=== PATIENT | male | born 1945 | race Caucasian/White ===

== ENCOUNTER 2024-09-14 05:41 | Observation (INO) ==
[~2024-09-14 05:41] MED LIST: Lidocaine 1% w EPI 1:100,000 MDV 50 ML VIAL ONE; NS 0.45% 1000 ml BAG 1,000 ML IV SCH; Naloxone 0.4 mg VIAL 0.4 mg/ml 1 ml VIAL IV PRN; Ondansetron 4 mg VIAL 2 MG/ML 2 ml VIAL IV PRN; Vancomycin 1,000 MG VIAL ONE; fentaNYL 100 mcg/2 ml 50 MCG/ML VIAL IV PRN
[2024-09-14] MEDS ORDERED: ceFAZolin 2 GM PREMIX 2 GM/50 ML BAG ONE (06:05)
[2024-09-14] MEDS ORDERED: Tranexamic Acid 1 GM/100ML BAG 2,000 MG/200 ML BAG IV ONE (06:05)
[2024-09-14] MEDS ORDERED: Propofol 10 mg/ml 100 ML BTL 0 MG/0 ML BTL ONE (06:41)
[2024-09-14] MEDS ORDERED: Lidocaine 2% PF 5 ML VIAL ONE (06:42)
[2024-09-14] MEDS ORDERED: Ondansetron 4 mg VIAL 2 MG/ML 2 ml VIAL ONE ×2 (06:42→13:24)
[2024-09-14] MEDS ORDERED: Dexamethasone IV 4 MG/ML VIAL 1 ml VIAL ONE ×2 (06:42→13:24)
[2024-09-14] MEDS ORDERED: fentaNYL 100 mcg/2 ml 50 MCG/ML VIAL ONE ×4 (06:43→13:45)
[2024-09-14] MEDS ORDERED: Midazolam 2 mg/2 ml VIAL 1 mg/ml 2 ml VIAL (2 mg) ONE (06:43)
[2024-09-14] MEDS ORDERED: Rocuronium 50 mg VIAL 10 mg/ml 5 ml VIAL (50 mg) ONE (06:43)
[2024-09-14] MEDS ORDERED: Phenylephrine IV 10 MG/ML 1 ml VIAL ONE (06:43)
[2024-09-14 06:44] LABS: Rapid COVID-19 Molecular Undetected (Undetected)
[2024-09-14] MEDS ORDERED: ROPIVACAINE 5 MG/ML 30 ML BTL (0.5%) ONE (06:47)
[2024-09-14] MEDS ORDERED: Midazolam 5 mg/5 ml VIAL 1 mg/ml 5 ml VIAL (5 mg) ONE ×2 (06:47→10:13)
[2024-09-14] MEDS ORDERED: HYDROmorphone 0.5 MG/0.5 ML SYRINGE ONE (12:40)
[2024-09-14] MEDS ORDERED: KETAMINE HCL 10 MG/ML 20 ml VIAL (200 MG) ONE (13:19)
[2024-09-14] MEDS ORDERED: Sevoflurane BOTTLE ONE (13:53)
[2024-09-14] MEDS ORDERED: Propofol 10 MG/ML 20 ML BTL ONE (14:12)
[2024-09-14] MEDS ORDERED: Acetaminophen IV 1 GM/100ML 1,000 MG/100 ML BAG IV ONE (14:36)
[2024-09-14] MEDS: Acetaminophen IV 1 GM/100ML 1,000 MG/100 ML BAG IV ONE (15:04)
[2024-09-14] MEDS: Buffered Lidocaine 1% SYRIN 1 ml INTRADERM ONE (15:04)
[2024-09-14] MEDS: Lactated Ringers 1000 ml BAG 1,000 ML IV SCH ×2 (15:05→16:40)
[2024-09-14] MEDS ORDERED: Ondansetron ODT 4 mg TAB 4 MG TAB PO PRN (15:14)
[2024-09-14] MEDS ORDERED: Calcium Carb (TUMS) 500 mg CHEW TAB PO PRN (15:14)
[2024-09-14] MEDS ORDERED: Magnesium Hydroxide LIQ 30 ML UDC PO PRN (15:14)
[2024-09-14] MEDS ORDERED: Lactulose 30 ml UDC PO PRN (15:14)
[2024-09-14] MEDS ORDERED: Morphine 2 MG/ML SYRINGE IV PRN (15:14)
[2024-09-14] MEDS ORDERED: Ondansetron 4 mg VIAL 2 MG/ML 2 ml VIAL IV PRN (15:14)
[2024-09-14] MEDS: ceFAZolin 2 GM PREMIX 2 GM/50 ML BAG IV SCH (19:43)
[2024-09-14] MEDS: Magnesium Hydroxide LIQ 30 ML UDC PO SCH (19:45)
[2024-09-15 06:24] LABS: Hematocrit 37.7 % (38-53); Hemoglobin 12.8 g/dL (13.2-16.3); Mean Platelet Volume 7.3 fL (7.5-11.2); Platelet Count 267 10^3/uL (150-450)
[2024-09-15 07:08] LABS: Calcium 8.4 mg/dL (8.6-10.3); Creatinine, Serum 0.76 mg/dL (0.67-1.17)
[2024-09-15] MEDS: Vitamin THERAPEUTIC TAB PO SCH (08:09)
[2024-09-15 09:55] VITALS: BP 137/84
== END 2024-09-15 12:57 | disposition home or self-care (01) ==
LOC: OR 05:41 → SSU 05:41 → SUATTDRO 16:44
PROVIDERS: ADMIT Orthopaedic Surgery; ATTEND Orthopaedic Surgery